=== PATIENT | male | born 1955 | race Caucasian/White ===

== ENCOUNTER 2018-11-18 20:27 | Emergency (ER) | payer OTHER ==
[2018-11-18] MEDS ORDERED: TETANUS/DIPHTHERIA/PERTUSSIS 0.5 ML SYRINGE IM ONE (20:32)
[2018-11-18] MEDS ORDERED: BUFFERED LIDOCAINE 10 ML SYRINGE SUBQ STA (20:32)
--- NOTE | 2018-11-18 20:34 | ED Physician Documentation ---
PD HPI UPPER EXT INJURY - Stated complaint Stated Complaint: LT HAND LAC - Chief complaint Chief Complaint: Laceration - History obtained from History obtained from: Patient - History of Present Illness Location: Left (He had a trip and fall and basically his third and fourth fingers of the left hand hyperextended with resultant tearing lacerations of those fingers on the palmar side at the level of the MCPs.) Review of Systems Constitutional: reports: Reviewed and negative Throat: reports: Reviewed and negative Cardiac: reports: Reviewed and negative Respiratory: reports: Reviewed and negative PD PAST MEDICAL HISTORY - Present Medications Home Medications: Ambulatory Orders Medication Instructions Recorded Confirmed Cephalexin [Keflex] 500 mg PO Q6H #28 capsule 11/18/18 Hydrocodone/Acetaminophen 1 - 2 each PO Q6H PRN #14 tablet 11/18/18 [Hydrocodon-Acetaminophen 5-325] - Allergies Allergies/Adverse Reactions: Allergies Allergy/AdvReac Type Severity Reaction Status Date / Time No Known Drug Allergies Allergy Verified 11/18/18 20:38 PD ED PE NORMAL - Vitals Vital signs reviewed: Yes - General General: Alert and oriented X 3, No acute distress - Extremities Extremities: Other (He has mild tenderness over the MCPs dorsally of the left hand, he has a laceration along the palmar side of the left third and fourth fingers at the level of the MCPs with intact flexor tendon strength.) - Neuro Neuro: Alert and oriented X 3, Normal speech Results - Rads (name of study) 3v L hand Radiology: EMP read contemporaneously (Comminuted fracture of the proximal phalanx of the 5th digit and intra-articular nondisplaced fracture of the proximal phalanx of the fourth digit) Procedures - Laceration (location) L hand Length in cm: 4 Wound type: Linear, Into subcut fat Neurovascular status: Sensory intact, Motor intact, Vascular intact Tendon involvement: Tendon intact Anesthesia: Lidocaine 1%, With bicarb Wound Preparation: Chlorhexadine, Irrigated copiously NS Skin layer closure: Nylon, Interrupted, Size #-0 - enter number (4-0), Sutures - enter # (12) Other: Tetanus booster given Complexity: Simple - Splint (location) L hand Splint applied by: Tech Type of splint: Fiberglass, Short arm, Volar cock up Other: Patient tolerated well, No complications, Neurovascular intact PD MEDICAL DECISION MAKING - ED course ED course: 63-year-old gentleman who had a fall with blunt force lacerations on the palmar surface of the third and fourth digits at the level of the MCP with an open fractures of the proximal phalanges of the fourth and fifth MCPs. Case discussed by phone with Dr. Arnett at 9:05 PM who recommends bedside washout and closure and follow-up in the clinic with splinting. Departure - Departure Disposition: 01 Home, Self Care Clinical Impression: Laceration Open fracture of phalanx of left hand Qualifiers: Encounter type: initial encounter Finger: ring finger Phalanx: proximal Fracture alignment: nondisplaced Qualified Code(s): S62.645B - Nondisplaced fracture of proximal phalanx of left ring finger, initial encounter for open fracture Open fracture of phalanx of little finger Qualifiers: Encounter type: initial encounter Phalanx: proximal Fracture alignment: displaced Laterality: left Qualified Code(s): S62.617B - Displaced fracture of proximal phalanx of left little finger, initial encounter for open fracture Condition: Good Record reviewed to determine appropriate education?: Yes Instructions: ED Fx Finger Open Follow-Up: [facility] [Provider Group] - Within 3 Days Prescriptions: Cephalexin [Keflex] 500 mg PO Q6H #28 capsule Hydrocodone/Acetaminophen [Hydrocodon-Acetaminophen 5-325] 1 - 2 each PO Q6H PRN #14 tablet PRN Reason: pain
[2018-11-18] MEDS ORDERED: cephALEXin 250 MG CAPSULE PO STA (21:04)
--- NOTE | 2018-11-18 21:19 | XRAY Report ---
Reason: hand inj Procedure Date: 11/18/2018 Accession Number: [id number] / [id number] Procedure: XR - Hand 3 View LT CPT Code: FULL RESULT: EXAM: LEFT HAND RADIOGRAPHY EXAM DATE: 11/18/2018 08:54 PM. CLINICAL HISTORY: Hand inj. COMPARISON: None. TECHNIQUE: 3 views. FINDINGS: Bones: There is a transverse fracture of the base of the fifth digit, proximal phalanx including a sagittal intra-articular fracture line. There is slight angulation of these fracture fragments. In addition, there is a nondisplaced intra-articular fracture of the base of the proximal phalanx of the fourth digit. Joints: Normal. No subluxations. Soft Tissues: There is some soft tissue swelling over the dorsum of the hand. IMPRESSION: 1. Comminuted fracture of the proximal phalanx of the fifth digit. 2. Intra-articular nondisplaced fracture of the proximal phalanx of the fourth digit. [facility]
[2018-11-18] MEDS ORDERED: CEPHALEXIN 250 MG Prepack 8 PO STA (21:26)
== END 2018-11-18 21:51 | disposition home or self-care (01) ==
LOC: ED 20:27
DX: S62.645B Nondisplaced fracture of proximal phalanx of left ring finger, initial encounter for open fracture (principal); S62.617B Displaced fracture of proximal phalanx of left little finger, initial encounter for open fracture; S61.412A Laceration without foreign body of left hand, initial encounter; W01.0XXA Fall on same level from slipping, tripping and stumbling without subsequent striking against object, initial encounter; Z23 Encounter for immunization
CPT/HCPCS: 12002; 29125; 73130; 90471; 90715; 99283; A9270